=== PATIENT | female | born 1940 | race Hispanic/Latino ===

== ENCOUNTER 2023-06-27 15:10 | Inpatient (IN) | payer OTHER ==
[2023-06-27] VITALS (7 sets, daily range): BP systolic 115–133; BP diastolic 43–83; PULSE 71–87; RESP 11–16; O2SAT 100
[~2023-06-27] VITALS: Ht 170.2 cm; Wt 94.0 kg
[2023-06-27 16:23] LABS: BASOPHILS # (AUTO) 0.11 K/uL (0.00-0.20); BASOPHILS % (AUTO) 0.2 % (0.0-5.0); EOSINOPHILS # (AUTO) 0.03 K/uL (0.00-0.70); EOSINOPHILS % (AUTO) 0.1 % (0.0-8.0); HEMATOCRIT 26.1 % (36-48); IMMATURE GRANULOCYTE ABSOLUTE 1.08 K/uL (0-1); LYMPHOCYTES # (AUTO) 0.8 K/uL (1.0-4.8); LYMPHOCYTES % (AUTO) 1.9 % (21.0-51.0); MEAN CORPUSCULAR HEMOGLOBIN 21.2 pg (27.0-33.0); MEAN CORPUSCULAR VOLUME 68.3 fL (79-99); MONOCYTES # (AUTO) 1.1 K/uL (0.1-1.0); MONOCYTES % (AUTO) 2.4 % (3.0-13.0); PLATELET COUNT (AUTO) 417 K/uL (130-400); RED BLOOD CELL COUNT(AUTO) 3.82 MIL/uL (4.00-5.50); RED CELL DISTRIBUTION WIDTH 17.4 % (11.0-15.5)
[2023-06-27 16:26] LABS: ADD UA MICROSCOPIC YES; APPEARANCE,URINE TURBID (CLEAR); BILIRUBIN,URINE NEGATIVE (NEGATIVE); COLOR,URINE ORANGE (YELLOW); GLUCOSE, URINE (UA) NEGATIVE (NEGATIVE); KETONES,URINE NEGATIVE (NEGATIVE); LEUKOCYTE ESTERASE ,URINE 500 Leu/uL (NEGATIVE); NITRATE,URINE NEGATIVE (NEGATIVE); OCCULT BLOOD,URINE MODERATE (NEGATIVE); PH,URINE 7.5 (5.0-8.0); PROTEIN,URINE 200 mg/dL (NEGATIVE); UROBILINOGEN,URINE 0.2 mg/dL (0.2-1.0)
[2023-06-27 16:27] LABS: BACTERIA,URINE MOD /HPF (None Seen); MUCUS,URINE MANY LPF (None Seen); OTHER CASTS, URINE 63 /LPF (None Seen); RBC,URINE 26-50 /HPF (0-1); SQUAMOUS EPITHELIAL CELL,UR MOD /HPF (0-2); UNCLASSIFIED CRYSTAL 6 /HPF (None Seen); WBC CLUMP MANY /HPF (0-1); WBC,URINE 51-100 /HPF (0-1); YEAST,URINE BUDDING FEW /HPF (None Seen)
[2023-06-27 16:30] LABS: WHITE BLOOD COUNT (AUTO) 44.1 K/uL (4.8-10.8)
[2023-06-27 16:35] LABS: INR 1.06 (0.85-1.15); PROTHROMBIN TIME 12.2 SEC (9.6-11.6)
[2023-06-27 16:36] LABS: PARTIAL THROMBOPLASTIN TIME 30.7 SEC (26.3-35.5)
[2023-06-27] MEDS ORDERED: ZOSYN 3.375GM+NS 50ML 50 ML IVPB ONE (16:36)
[2023-06-27 16:41] LABS: ALBUMIN 1.5 g/dL (3.5-5.0); BILIRUBIN,TOTAL 0.4 mg/dL (0.2-1.0); POTASSIUM 5.3 mmol/L (3.5-5.1); TOTAL PROTEIN, SERUM 6.5 g/dL (6.0-8.3)
[2023-06-27] MEDS ORDERED: VANCOMYCIN KIT 1 GM/250 ML IV.KIT IV ONE (17:00)
[2023-06-27] MEDS ORDERED: 0.9%NACL 1000ML 1,000 ML IV SCH (17:00)
[2023-06-27] MEDS ORDERED: ZOSYN 3.375GM +NS 50ML IVPB ONE (17:00)
[2023-06-27 17:47] LABS: BAND NEUTROPHILS % (MANUAL) 8 % (0-2); LYMPHOCYTES % (MANUAL) 1 % (22-44); MAN.DIFF COMMENT-IMPRESSION MANUAL DIFFERENTIAL; MONOCYTES % (MANUAL) 1 % (2-9); SEGMENTED NEUTROPHILS % 90 % (40-70); TOTAL CELLS COUNTED 100
[2023-06-27 17:48] LABS: PLATELET MORPHOLOGY COMMENT PLT CLUMPS PRESENT
[2023-06-27] MEDS ORDERED: HYDROCODONE/ACETAMINOPHEN 5/325 MG TAB PO PRN (18:30)
[2023-06-27] MEDS ORDERED: DEXTROSE 5 %-0.45 % NACL 500 ML IV SCH (18:30)
[2023-06-27] MEDS ORDERED: NITROGLYCERIN 0.4 MG SL TAB SL PRN (18:30)
[2023-06-27] MEDS ORDERED: KCL 20 MEQ ERTAB PO PRN (18:30)
[2023-06-27] MEDS ORDERED: MAG/ALUM/SIMETH 30 ML UDCUP PO PRN (18:30)
[2023-06-27] MEDS ORDERED: GUAIFENESIN-DM 200/20 MG 10 ML PO PRN (18:30)
[2023-06-27] MEDS ORDERED: DiphenhydrAMINE HCL 50 MG/ML VIAL IV PRN (18:30)
[2023-06-27] MEDS ORDERED: POTASSIUM CHLORIDE 20MEQ/100ML 100 ML IV PRN (18:30)
[2023-06-27] MEDS ORDERED: ACETAMINOPHEN 325 MG TAB PO PRN (18:30)
[2023-06-27] MEDS ORDERED: DIPHENHYDRAMINE HCL 25 MG CAPSULE PO PRN (18:30)
[2023-06-27] MEDS ORDERED: POTASSIUM CHLORIDE 10% ELIXIR 20 MEQ/15 ML UDCUP PO PRN (18:30)
[2023-06-27] MEDS ORDERED: LACTULOSE 20 GM/30 ML UDCUP PO PRN (18:30)
[2023-06-27] MEDS ORDERED: VANCOMYCIN PROTOCOL PER PHARMACY IV PRN (18:30)
[2023-06-27] MEDS ORDERED: CEFEPIME HCL 2 GM VIAL IVPB SCH (18:30)
[2023-06-27 18:37] LABS: % IRON SATURATION 4.5 % (22-44)
[2023-06-27 18:45] LABS: THYROID STIMULATING HORMONE 5.33 uIU/mL (0.36-3.74)
[2023-06-27] MEDS: CEFEPIME HCL 1 GM VIAL IVPB SCH (19:30)
[2023-06-27] MEDS: FAMOTIDINE 20MG TAB PO SCH (20:13)
[2023-06-27] MEDS ORDERED: NOREPINEPHRIN 4MG/NS 250ML 250 ML IV ONE (20:21)
[2023-06-27] MEDS ORDERED: 0.9%NACL 1000ML 1,848 ML IV ONE (20:30)
[2023-06-27] MEDS: NOREPINEPHRIN 4MG/NS 250ML 250 ML IV SCH (20:37)
[2023-06-27] MEDS ORDERED: FAMOTIDINE 20MG VIAL IV PRN (21:00)
[2023-06-27] MEDS: HEPARIN 5,000 UNIT VIAL SQ SCH (21:11)
[2023-06-28] VITALS (53 sets, daily range): BP systolic 78–142; BP diastolic 38–80; PULSE 67–101; RESP 10–25; O2SAT 98–99
[2023-06-28] MEDS: NOREPINEPHRIN 4MG/NS 250ML 250 ML IV SCH ×2 (02:48→17:25)
[2023-06-28 05:09] LABS: BASOPHILS # (AUTO) 0.19 K/uL (0.00-0.20); BASOPHILS % (AUTO) 0.3 % (0.0-5.0); EOSINOPHILS # (AUTO) 0.17 K/uL (0.00-0.70); EOSINOPHILS % (AUTO) 0.3 % (0.0-8.0); HEMATOCRIT 27.2 % (36-48); IMMATURE GRANULOCYTE ABSOLUTE 1.18 K/uL (0-1); LYMPHOCYTES # (AUTO) 1.2 K/uL (1.0-4.8); LYMPHOCYTES % (AUTO) 2.1 % (21.0-51.0); MEAN CORPUSCULAR HEMOGLOBIN 20.9 pg (27.0-33.0); MEAN CORPUSCULAR HGB CONC 29.8 g/dL (32.0-36.0); MEAN CORPUSCULAR VOLUME 70.3 fL (79-99); MONOCYTES # (AUTO) 1.4 K/uL (0.1-1.0); MONOCYTES % (AUTO) 2.6 % (3.0-13.0); NEUTROPHILS % (AUTO) 92.6 % (40.0-77.0); PLATELET COUNT (AUTO) 407 K/uL (130-400); RED BLOOD CELL COUNT(AUTO) 3.87 MIL/uL (4.00-5.50); RED CELL DISTRIBUTION WIDTH 17.3 % (11.0-15.5)
[2023-06-28 05:10] LABS: WHITE BLOOD COUNT (AUTO) 56.1 K/uL (4.8-10.8)
[2023-06-28 05:21] LABS: INR 1.03 (0.85-1.15); PROTHROMBIN TIME 11.9 SEC (9.6-11.6)
[2023-06-28 05:22] LABS: PARTIAL THROMBOPLASTIN TIME 32.4 SEC (26.3-35.5)
[2023-06-28 05:28] LABS: ALBUMIN 1.3 g/dL (3.5-5.0); BILIRUBIN,TOTAL 0.2 mg/dL (0.2-1.0); CREATININE 2.4 mg/dL (0.5-1.5); MAGNESIUM 2.4 mg/dL (1.80-2.40); PHOSPHORUS 4.9 mg/dL (2.5-4.9); POTASSIUM 4.2 mmol/L (3.5-5.1)
[2023-06-28] MEDS: CEFEPIME HCL 1 GM VIAL IVPB SCH ×2 (05:44→18:25)
[2023-06-28] MEDS ORDERED: VANCOMYCIN PROTOCOL PER PHARMACY IV SCH (07:00)
[2023-06-28] MEDS ORDERED: ZOSYN 3.375GM +NS 50ML IVPB SCH (07:00)
[2023-06-28 08:24] LABS: ABG BASE EXCESS -10.6 mmol/L (-2.0-3.0); ABG HCO3 14.1 mmol/L (21.0-28.0); ABG OXYGEN SATURATION 97.8 % (95.0-99.0); ABG PCO2 27 mmHg (32-45); CARBON MONOXIDE 2.2; DEVICE COMMENT LR 2LNC; HHb 2.1
[2023-06-28] MEDS: HEPARIN 5,000 UNIT VIAL SQ SCH ×3 (08:53→21:42)
[2023-06-28] MEDS: IRON SUCROSE COMPLEX 300 MG in 0.9% NACL 250ML 250 ML IV SCH (08:53)
[2023-06-28] MEDS ORDERED: 0.9%NACL 50ML IV SCH (09:00)
[2023-06-28] MEDS: SODIUM BICARB 8.4% 50ML SYRING 150 MEQ in DEXTROSE 5%-WATER 1,000 ML IVP SCH ×2 (09:11→19:48)
[2023-06-28 12:12] LABS: CREATININE 2.3 mg/dL (0.5-1.5); POTASSIUM 4.9 mmol/L (3.5-5.1)
[2023-06-28] MEDS ORDERED: DEXAMETHASONE SOD PHOSPHATE 4 MG/ML 1ML VIAL IV ONE (14:30)
[2023-06-28 18:26] LABS: CREATININE 2.2 mg/dL (0.5-1.5); POTASSIUM 4.1 mmol/L (3.5-5.1)
[2023-06-28] MEDS: SODIUM HYPOCHLORITE 0.25% [HALF STRENGTH] 473 ML TOPICAL SOLN TP SCH (20:35)
[2023-06-28] MEDS: FAMOTIDINE 20MG TAB PO SCH (21:40)
[2023-06-28] MEDS: HYDROMORPHONE 1 MG INJ IV PRN (21:41)
[2023-06-28] MEDS ORDERED: NOREPINEPHRINE BITARTRATE 32 MG in 0.9% NACL 250ML 250 ML IV PRN (23:00)
[2023-06-29] VITALS (141 sets, daily range): BP systolic 105–165; BP diastolic 38–103; PULSE 67–107; RESP 6–154; O2SAT 97–98
[2023-06-29 04:05] LABS: BASOPHILS # (AUTO) 0.15 K/uL (0.00-0.20); BASOPHILS % (AUTO) 0.3 % (0.0-5.0); EOSINOPHILS # (AUTO) 0.17 K/uL (0.00-0.70); EOSINOPHILS % (AUTO) 0.3 % (0.0-8.0); HEMATOCRIT 27.5 % (36-48); IMMATURE GRANULOCYTE ABSOLUTE 0.85 K/uL (0-1); LYMPHOCYTES # (AUTO) 0.6 K/uL (1.0-4.8); LYMPHOCYTES % (AUTO) 1.3 % (21.0-51.0); MEAN CORPUSCULAR HEMOGLOBIN 20.6 pg (27.0-33.0); MEAN CORPUSCULAR HGB CONC 29.8 g/dL (32.0-36.0); MEAN CORPUSCULAR VOLUME 69.1 fL (79-99); MONOCYTES # (AUTO) 0.2 K/uL (0.1-1.0); MONOCYTES % (AUTO) 0.5 % (3.0-13.0); NEUTROPHILS # (AUTO) 46.7 K/uL (1.8-7.7); NEUTROPHILS % (AUTO) 95.9 % (40.0-77.0); NUCLEATED RED BLOOD CELLS 0.1 % (0.0-0.19); PLATELET COUNT (AUTO) 398 K/uL (130-400); RED BLOOD CELL COUNT(AUTO) 3.98 MIL/uL (4.00-5.50); RED CELL DISTRIBUTION WIDTH 17.4 % (11.0-15.5)
[2023-06-29 04:22] LABS: WHITE BLOOD COUNT (AUTO) 48.7 K/uL (4.8-10.8)
[2023-06-29 04:25] LABS: ALBUMIN 1.2 g/dL (3.5-5.0); BILIRUBIN,TOTAL 0.2 mg/dL (0.2-1.0); CREATININE 1.9 mg/dL (0.5-1.5); POTASSIUM 3.8 mmol/L (3.5-5.1); TOTAL PROTEIN, SERUM 5.8 g/dL (6.0-8.3)
[2023-06-29 05:18] LABS: BAND NEUTROPHILS % (MANUAL) 6 % (0-2); LYMPHOCYTES % (MANUAL) 2 % (22-44); MAN.DIFF COMMENT-IMPRESSION MANUAL DIFFERENTIAL; SEGMENTED NEUTROPHILS % 92 % (40-70); TOTAL CELLS COUNTED 100
[2023-06-29 05:19] LABS: PLATELET MORPHOLOGY COMMENT ADEQUATE
[2023-06-29] MEDS: CEFEPIME HCL 1 GM VIAL IVPB SCH ×2 (06:38→16:56)
[2023-06-29] MEDS: IRON SUCROSE COMPLEX 300 MG in 0.9% NACL 250ML 250 ML IV SCH (08:31)
[2023-06-29] MEDS: HEPARIN 5,000 UNIT VIAL SQ SCH ×3 (08:36→20:24)
[2023-06-29] MEDS: SODIUM HYPOCHLORITE 0.25% [HALF STRENGTH] 473 ML TOPICAL SOLN TP SCH ×2 (08:43→22:00)
[2023-06-29] MEDS ORDERED: DEXAMETHASONE SOD PHOSPHATE 4 MG/ML 1ML VIAL IVP ONE (09:00)
[2023-06-29] MEDS: MIDODRINE HCL 5 MG TABLET PO SCH ×3 (09:24→20:22)
[2023-06-29] MEDS ORDERED: DEXTROSE 50%-WATER 50 ML DISP.SYRIN IV PRN (09:30)
[2023-06-29] MEDS ORDERED: GLUCAGON 1MG KIT 1 MG ML IM PRN (09:30)
[2023-06-29 09:37] LABS: HEMOGLOBIN A1C 6.3 % (4.0-6.0)
[2023-06-29] MEDS: HYDROCODONE/ACETAMINOPHEN 5/325 MG TAB PO PRN (11:09)
[2023-06-29] MEDS: INSULIN HUMULIN R 100 UNIT/ML 3ML SQ SCH ×3 (11:30→20:19)
[2023-06-29] MEDS: HYDROMORPHONE 1 MG INJ IV PRN ×2 (14:08→23:06)
[2023-06-29] MEDS ORDERED: VANCOMYCIN 1G/250ML KIT 250 ML IV SCH (17:00)
[2023-06-29] MEDS: FAMOTIDINE 20MG TAB PO SCH (20:22)
[2023-06-30] VITALS (131 sets, daily range): BP systolic 84–142; BP diastolic 36–87; PULSE 58–113; RESP 8–37; O2SAT 97–100
[2023-06-30 04:45] LABS: BASOPHILS # (AUTO) 0.16 K/uL (0.00-0.20); BASOPHILS % (AUTO) 0.3 % (0.0-5.0); EOSINOPHILS # (AUTO) 0.03 K/uL (0.00-0.70); EOSINOPHILS % (AUTO) 0.1 % (0.0-8.0); HEMATOCRIT 24.9 % (36-48); IMMATURE GRANULOCYTE ABSOLUTE 1.33 K/uL (0-1); LYMPHOCYTES # (AUTO) 1.3 K/uL (1.0-4.8); LYMPHOCYTES % (AUTO) 2.3 % (21.0-51.0); MEAN CORPUSCULAR HEMOGLOBIN 20.9 pg (27.0-33.0); MEAN CORPUSCULAR HGB CONC 29.3 g/dL (32.0-36.0); MEAN CORPUSCULAR VOLUME 71.1 fL (79-99); MONOCYTES # (AUTO) 1.3 K/uL (0.1-1.0); MONOCYTES % (AUTO) 2.4 % (3.0-13.0); NEUTROPHILS # (AUTO) 51.3 K/uL (1.8-7.7); NEUTROPHILS % (AUTO) 92.5 % (40.0-77.0); NUCLEATED RED BLOOD CELLS 0.2 % (0.0-0.19); PLATELET COUNT (AUTO) 323 K/uL (130-400)
[2023-06-30 04:51] LABS: WHITE BLOOD COUNT (AUTO) 55.4 K/uL (4.8-10.8)
[2023-06-30 05:22] LABS: ALBUMIN 1.2 g/dL (3.5-5.0); BILIRUBIN,TOTAL 0.2 mg/dL (0.2-1.0); CREATININE 1.9 mg/dL (0.5-1.5); POTASSIUM 4.3 mmol/L (3.5-5.1); TOTAL PROTEIN, SERUM 5.4 g/dL (6.0-8.3)
[2023-06-30] MEDS: CEFEPIME HCL 1 GM VIAL IVPB SCH (06:12)
[2023-06-30] MEDS: INSULIN HUMULIN R 100 UNIT/ML 3ML SQ SCH ×4 (06:22→20:44)
[2023-06-30] MEDS: IRON SUCROSE COMPLEX 300 MG in 0.9% NACL 250ML 250 ML IV SCH (08:06)
[2023-06-30] MEDS: HEPARIN 5,000 UNIT VIAL SQ SCH ×3 (08:06→20:42)
[2023-06-30] MEDS: MEROPENEM 1 GM in 0.9%NACL 100ML 100 ML IV SCH ×2 (08:07→20:57)
[2023-06-30] MEDS: SODIUM HYPOCHLORITE 0.25% [HALF STRENGTH] 473 ML TOPICAL SOLN TP SCH ×2 (08:07→22:53)
[2023-06-30] MEDS: MIDODRINE HCL 5 MG TABLET PO SCH ×3 (08:07→20:42)
[2023-06-30] MEDS: ONDANSETRON 4MG INJ IV PRN (08:16)
[2023-06-30] MEDS ORDERED: BISACODYL 10 MG SUPP.RECT RC ONE (12:00)
[2023-06-30] MEDS: HYDROMORPHONE 1 MG INJ IV PRN ×2 (12:13→22:33)
[2023-06-30] MEDS: METOCLOPRAMIDE 10 MG/2 ML VIAL IVP SCH (16:09)
[2023-06-30] MEDS: DOCUSATE SODIUM 100 MG CAP PO SCH (20:42)
[2023-06-30] MEDS: FAMOTIDINE 20MG TAB PO SCH (20:43)
[2023-06-30] MEDS ORDERED: COMPOUND IV MISC 1 EACH IVSOLN MISC PRN (21:00)
[2023-06-30] MEDS ORDERED: COMPOUND IV REFRIGERATED 1 EACH IVSOLN MISC PRN (21:00)
[2023-07-01] VITALS (85 sets, daily range): BP systolic 85–165; BP diastolic 38–109; PULSE 56–89; RESP 8–28; O2SAT 94–100
[2023-07-01 05:29] LABS: BASOPHILS # (AUTO) 0.14 K/uL (0.00-0.20); BASOPHILS % (AUTO) 0.3 % (0.0-5.0); EOSINOPHILS # (AUTO) 0.02 K/uL (0.00-0.70); HEMATOCRIT 25.7 % (36-48); IMMATURE GRANULOCYTE ABSOLUTE 1.54 K/uL (0-1); LYMPHOCYTES # (AUTO) 1.4 K/uL (1.0-4.8); LYMPHOCYTES % (AUTO) 2.5 % (21.0-51.0); MEAN CORPUSCULAR HGB CONC 29.2 g/dL (32.0-36.0); MONOCYTES # (AUTO) 1.3 K/uL (0.1-1.0); MONOCYTES % (AUTO) 2.4 % (3.0-13.0); NEUTROPHILS # (AUTO) 49.3 K/uL (1.8-7.7); NEUTROPHILS % (AUTO) 91.9 % (40.0-77.0); NUCLEATED RED BLOOD CELLS 0.2 % (0.0-0.19); PLATELET COUNT (AUTO) 237 K/uL (130-400); RED BLOOD CELL COUNT(AUTO) 3.57 MIL/uL (4.00-5.50); RED CELL DISTRIBUTION WIDTH 18.3 % (11.0-15.5)
[2023-07-01 05:32] LABS: WHITE BLOOD COUNT (AUTO) 53.6 K/uL (4.8-10.8)
[2023-07-01 05:43] LABS: ALBUMIN 1.4 g/dL (3.5-5.0); BILIRUBIN,TOTAL 0.3 mg/dL (0.2-1.0); CREATININE 2.1 mg/dL (0.5-1.5); MAGNESIUM 2.1 mg/dL (1.80-2.40); PHOSPHORUS 4.6 mg/dL (2.5-4.9); POTASSIUM 4.4 mmol/L (3.5-5.1); TOTAL PROTEIN, SERUM 5.6 g/dL (6.0-8.3)
[2023-07-01 06:02] LABS: BAND NEUTROPHILS % (MANUAL) 1 % (0-2); LYMPHOCYTES % (MANUAL) 2 % (22-44); MAN.DIFF COMMENT-IMPRESSION MANUAL DIFFERENTIAL; MONOCYTES % (MANUAL) 1 % (2-9); SEGMENTED NEUTROPHILS % 96 % (40-70); TOTAL CELLS COUNTED 100
[2023-07-01 06:03] LABS: PLATELET MORPHOLOGY COMMENT ADEQUATE
[2023-07-01] MEDS: METOCLOPRAMIDE 10 MG/2 ML VIAL IVP SCH ×3 (06:40→17:22)
[2023-07-01] MEDS: INSULIN HUMULIN R 100 UNIT/ML 3ML SQ SCH ×4 (06:48→21:00)
[2023-07-01] MEDS: DOCUSATE SODIUM 100 MG CAP PO SCH ×2 (08:28→20:54)
[2023-07-01] MEDS: SODIUM HYPOCHLORITE 0.25% [HALF STRENGTH] 473 ML TOPICAL SOLN TP SCH ×2 (08:28→21:02)
[2023-07-01] MEDS: LACTOBACILLUS RHAMNOSUS GG 1 EACH CAP.SPRINK PO SCH (08:28)
[2023-07-01] MEDS: MIDODRINE HCL 5 MG TABLET PO SCH ×3 (08:28→20:56)
[2023-07-01] MEDS: POLYETHYLENE GLYCOL 3350 17 GM POWD.PACK PO SCH (08:28)
[2023-07-01] MEDS: FLUCONAZOLE 400 MG/NS 200 ML 200 ML IV SCH (08:28)
[2023-07-01] MEDS: HEPARIN 5,000 UNIT VIAL SQ SCH ×3 (08:53→20:52)
[2023-07-01] MEDS: MEROPENEM 1 GM in 0.9%NACL 100ML 100 ML IV SCH ×2 (10:22→20:53)
[2023-07-01] MEDS ORDERED: VANCOMYCIN 2GM/500 ML BAG 500 ML IV ONE (16:30)
[2023-07-01] MEDS ORDERED: VANCOMYCIN PROTOCOL PER PHARMACY IV SCH (16:30)
[2023-07-01] MEDS: HYDROMORPHONE 1 MG INJ IV PRN (17:23)
[2023-07-01] MEDS ORDERED: DEXAMETHASONE SOD PHOSPHATE 4 MG/ML 1ML VIAL IV SCH (20:00)
[2023-07-01] MEDS: ONDANSETRON 4MG INJ IV PRN (20:51)
[2023-07-01] MEDS: FAMOTIDINE 20MG TAB PO SCH (20:54)
[2023-07-02] VITALS (122 sets, daily range): BP systolic 89–153; BP diastolic 39–89; PULSE 70–116; RESP 9–29; O2SAT 94–96
[2023-07-02] MEDS: HYDROMORPHONE 1 MG INJ IV PRN (03:43)
[2023-07-02 04:45] LABS: BASOPHILS # (AUTO) 0.08 K/uL (0.00-0.20); BASOPHILS % (AUTO) 0.2 % (0.0-5.0); EOSINOPHILS # (AUTO) 0.12 K/uL (0.00-0.70); EOSINOPHILS % (AUTO) 0.3 % (0.0-8.0); HEMATOCRIT 24.2 % (36-48); IMMATURE GRANULOCYTE ABSOLUTE 1.19 K/uL (0-1); LYMPHOCYTES # (AUTO) 1.2 K/uL (1.0-4.8); LYMPHOCYTES % (AUTO) 3.4 % (21.0-51.0); MEAN CORPUSCULAR HEMOGLOBIN 21.1 pg (27.0-33.0); MEAN CORPUSCULAR HGB CONC 29.8 g/dL (32.0-36.0); MEAN CORPUSCULAR VOLUME 70.8 fL (79-99); MONOCYTES % (AUTO) 2.8 % (3.0-13.0); NEUTROPHILS # (AUTO) 31.5 K/uL (1.8-7.7); NEUTROPHILS % (AUTO) 89.9 % (40.0-77.0); NUCLEATED RED BLOOD CELLS 0.2 % (0.0-0.19); PLATELET COUNT (AUTO) 231 K/uL (130-400); RED BLOOD CELL COUNT(AUTO) 3.42 MIL/uL (4.00-5.50); RED CELL DISTRIBUTION WIDTH 18.7 % (11.0-15.5)
[2023-07-02 04:58] LABS: ALBUMIN 1.3 g/dL (3.5-5.0); BILIRUBIN,TOTAL 0.3 mg/dL (0.2-1.0); CREATININE 1.9 mg/dL (0.5-1.5); MAGNESIUM 2.1 mg/dL (1.80-2.40); PHOSPHORUS 4.2 mg/dL (2.5-4.9); POTASSIUM 3.8 mmol/L (3.5-5.1); TOTAL PROTEIN, SERUM 5.3 g/dL (6.0-8.3)
[2023-07-02 05:07] LABS: WHITE BLOOD COUNT (AUTO) 35.1 K/uL (4.8-10.8)
[2023-07-02] MEDS: INSULIN HUMULIN R 100 UNIT/ML 3ML SQ SCH ×4 (06:58→21:00)
[2023-07-02] MEDS: METOCLOPRAMIDE 10 MG/2 ML VIAL IVP SCH ×3 (08:48→16:58)
[2023-07-02] MEDS: FLUCONAZOLE 400 MG/NS 200 ML 200 ML IV SCH (08:48)
[2023-07-02] MEDS: POLYETHYLENE GLYCOL 3350 17 GM POWD.PACK PO SCH (08:48)
[2023-07-02] MEDS: MIDODRINE HCL 5 MG TABLET PO SCH ×4 (08:48→21:20)
[2023-07-02] MEDS: LACTOBACILLUS RHAMNOSUS GG 1 EACH CAP.SPRINK PO SCH (08:48)
[2023-07-02] MEDS: DOCUSATE SODIUM 100 MG CAP PO SCH ×2 (08:48→21:27)
[2023-07-02] MEDS: SODIUM HYPOCHLORITE 0.25% [HALF STRENGTH] 473 ML TOPICAL SOLN TP SCH (08:49)
[2023-07-02] MEDS: MEROPENEM 1 GM in 0.9%NACL 100ML 100 ML IV SCH ×2 (08:52→21:20)
[2023-07-02] MEDS: HEPARIN 5,000 UNIT VIAL SQ SCH ×3 (08:57→21:23)
[2023-07-02] MEDS: DEXAMETHASONE SOD PHOSPHATE 4 MG/ML 1ML VIAL IV SCH ×2 (14:41→21:21)
[2023-07-02] MEDS: HYDROCODONE/ACETAMINOPHEN 5/325 MG TAB PO PRN (16:58)
[2023-07-02] MEDS: FAMOTIDINE 20MG TAB PO SCH (21:20)
[2023-07-03] VITALS (45 sets, daily range): BP systolic 108–139; BP diastolic 44–84; PULSE 60–83; RESP 8–18; O2SAT 95–97
[2023-07-03] MEDS: SODIUM HYPOCHLORITE 0.25% [HALF STRENGTH] 473 ML TOPICAL SOLN TP SCH ×3 (00:46→21:09)
[2023-07-03 04:47] LABS: ALBUMIN 1.3 g/dL (3.5-5.0); BILIRUBIN,TOTAL 0.2 mg/dL (0.2-1.0); CREATININE 1.8 mg/dL (0.5-1.5); MAGNESIUM 2.2 mg/dL (1.80-2.40); PHOSPHORUS 3.6 mg/dL (2.5-4.9); POTASSIUM 4.1 mmol/L (3.5-5.1); TOTAL PROTEIN, SERUM 5.2 g/dL (6.0-8.3)
[2023-07-03 05:31] LABS: BASOPHILS # (AUTO) 0.05 K/uL (0.00-0.20); BASOPHILS % (AUTO) 0.2 % (0.0-5.0); EOSINOPHILS # (AUTO) 0.04 K/uL (0.00-0.70); EOSINOPHILS % (AUTO) 0.1 % (0.0-8.0); IMMATURE GRANULOCYTE ABSOLUTE 0.66 K/uL (0-1); LYMPHOCYTES # (AUTO) 0.4 K/uL (1.0-4.8); LYMPHOCYTES % (AUTO) 1.4 % (21.0-51.0); MEAN CORPUSCULAR HEMOGLOBIN 20.7 pg (27.0-33.0); MEAN CORPUSCULAR HGB CONC 28.1 g/dL (32.0-36.0); MEAN CORPUSCULAR VOLUME 73.7 fL (79-99); MONOCYTES # (AUTO) 0.2 K/uL (0.1-1.0); MONOCYTES % (AUTO) 0.5 % (3.0-13.0); NEUTROPHILS # (AUTO) 28.8 K/uL (1.8-7.7); NEUTROPHILS % (AUTO) 95.6 % (40.0-77.0); NUCLEATED RED BLOOD CELLS 0.1 % (0.0-0.19); PLATELET COUNT (AUTO) 182 K/uL (130-400); RED BLOOD CELL COUNT(AUTO) 3.53 MIL/uL (4.00-5.50); RED CELL DISTRIBUTION WIDTH 19.6 % (11.0-15.5)
[2023-07-03 05:44] LABS: WHITE BLOOD COUNT (AUTO) 30.2 K/uL (4.8-10.8)
[2023-07-03 06:34] LABS: BAND NEUTROPHILS % (MANUAL) 1 % (0-2); LYMPHOCYTES % (MANUAL) 2 % (22-44); MONOCYTES % (MANUAL) 2 % (2-9); SEGMENTED NEUTROPHILS % 95 % (40-70); TOTAL CELLS COUNTED 100
[2023-07-03 06:35] LABS: MAN.DIFF COMMENT-IMPRESSION MANUAL DIFFERENTIAL; PLATELET MORPHOLOGY COMMENT ADEQUATE; WBC MORPHOLOGY HYPERSEGMENT NEUT 2+
[2023-07-03] MEDS: INSULIN HUMULIN R 100 UNIT/ML 3ML SQ SCH ×4 (06:54→21:00)
[2023-07-03] MEDS: MIDODRINE HCL 5 MG TABLET PO SCH ×6 (07:55→21:00)
[2023-07-03] MEDS: METOCLOPRAMIDE 10 MG/2 ML VIAL IVP SCH ×3 (10:20→19:32)
[2023-07-03] MEDS: HEPARIN 5,000 UNIT VIAL SQ SCH ×3 (10:21→22:14)
[2023-07-03] MEDS: LACTOBACILLUS RHAMNOSUS GG 1 EACH CAP.SPRINK PO SCH (10:22)
[2023-07-03] MEDS: DOCUSATE SODIUM 100 MG CAP PO SCH ×2 (10:23→21:06)
[2023-07-03] MEDS: POLYETHYLENE GLYCOL 3350 17 GM POWD.PACK PO SCH (10:23)
[2023-07-03] MEDS: FLUCONAZOLE 400 MG/NS 200 ML 200 ML IV SCH (10:23)
[2023-07-03] MEDS: MEROPENEM 1 GM in 0.9%NACL 100ML 100 ML IV SCH ×2 (10:23→21:05)
[2023-07-03] MEDS ORDERED: VANCOMYCIN 1G/250ML KIT 250 ML IV SCH (16:30)
[2023-07-03] MEDS: DEXAMETHASONE SOD PHOSPHATE 4 MG/ML 1ML VIAL IV SCH (20:00)
[2023-07-03] MEDS: FAMOTIDINE 20MG TAB PO SCH (21:06)
[2023-07-03] MEDS: ACETAMINOPHEN 325 MG TAB PO PRN (21:28)
[2023-07-04] MEDS: INSULIN HUMULIN R 100 UNIT/ML 3ML SQ SCH ×4 (07:30→21:00)
[2023-07-04] MEDS: MEROPENEM 1 GM in 0.9%NACL 100ML 100 ML IV SCH ×2 (08:00→20:47)
[2023-07-04] MEDS: FLUCONAZOLE 400 MG/NS 200 ML 200 ML IV SCH (08:40)
[2023-07-04] MEDS: LACTOBACILLUS RHAMNOSUS GG 1 EACH CAP.SPRINK PO SCH (08:40)
[2023-07-04] MEDS: DOCUSATE SODIUM 100 MG CAP PO SCH ×2 (08:40→20:42)
[2023-07-04] MEDS: MIDODRINE HCL 5 MG TABLET PO SCH ×6 (08:40→21:00)
[2023-07-04] MEDS: POLYETHYLENE GLYCOL 3350 17 GM POWD.PACK PO SCH (08:40)
[2023-07-04] MEDS: SODIUM HYPOCHLORITE 0.25% [HALF STRENGTH] 473 ML TOPICAL SOLN TP SCH (09:20)
[2023-07-04 09:30] VITALS: O2SAT 100
[2023-07-04] MEDS: HEPARIN 5,000 UNIT VIAL SQ SCH ×2 (14:43→21:06)
[2023-07-04] MEDS: ONDANSETRON 4MG INJ IV PRN (14:47)
[2023-07-04 15:16] LABS: ALBUMIN 1.4 g/dL (3.5-5.0); BILIRUBIN,TOTAL 0.2 mg/dL (0.2-1.0); CREATININE 1.7 mg/dL (0.5-1.5); MAGNESIUM 2.1 mg/dL (1.80-2.40); POTASSIUM 4.3 mmol/L (3.5-5.1); TOTAL PROTEIN, SERUM 5.5 g/dL (6.0-8.3)
[2023-07-04 16:00] VITALS: BP 143/74; PULSE 80; RESP 18
[2023-07-04 16:00] LABS: HEMATOCRIT 27.5 % (36-48); MEAN CORPUSCULAR HEMOGLOBIN 21.2 pg (27.0-33.0); MEAN CORPUSCULAR HGB CONC 27.6 g/dL (32.0-36.0); MEAN CORPUSCULAR VOLUME 76.6 fL (79-99); NUCLEATED RED BLOOD CELLS 0.1 % (0.0-0.19); PLATELET COUNT (AUTO) 216 K/uL (130-400); RED BLOOD CELL COUNT(AUTO) 3.59 MIL/uL (4.00-5.50); RED CELL DISTRIBUTION WIDTH 20.5 % (11.0-15.5)
[2023-07-04] MEDS: METOCLOPRAMIDE 10 MG/2 ML VIAL IVP SCH (16:09)
[2023-07-04 16:19] LABS: WHITE BLOOD COUNT (AUTO) 31.1 K/uL (4.8-10.8)
[2023-07-04 16:57] LABS: BAND NEUTROPHILS % (MANUAL) 5 % (0-2); LYMPHOCYTES % (MANUAL) 2 % (22-44); MAN.DIFF COMMENT-IMPRESSION MANUAL DIFFERENTIAL; MONOCYTES % (MANUAL) 2 % (2-9); PLATELET MORPHOLOGY COMMENT ADEQUATE; SEGMENTED NEUTROPHILS % 91 % (40-70); TOTAL CELLS COUNTED 100; WBC MORPHOLOGY CONSISTENT W/DIFF
[2023-07-04 20:00] VITALS: BP 133/72; PULSE 84; RESP 18
[2023-07-04] MEDS: FAMOTIDINE 20MG TAB PO SCH (20:42)
[2023-07-04 20:45] VITALS: O2SAT 98
[2023-07-04] MEDS ORDERED: DEXAMETHASONE 10MG/ML 1ML VIAL 40 MG in 0.9%NACL 50ML 50 ML IV ONE (21:30)
[2023-07-04] MEDS: PHARMACY COMMUNICATION MISC SCH (21:54)
[2023-07-05] VITALS (8 sets, daily range): BP systolic 129–137; BP diastolic 61–69; PULSE 73–81; RESP 16–20; O2SAT 98
[2023-07-05] MEDS: SODIUM HYPOCHLORITE 0.25% [HALF STRENGTH] 473 ML TOPICAL SOLN TP SCH ×3 (01:06→19:27)
[2023-07-05] MEDS: PHARMACY COMMUNICATION MISC SCH (02:22)
[2023-07-05 04:20] LABS: HEMATOCRIT 28.6 % (36-48); MEAN CORPUSCULAR HEMOGLOBIN 21.5 pg (27.0-33.0); MEAN CORPUSCULAR HGB CONC 28.7 g/dL (32.0-36.0); MEAN CORPUSCULAR VOLUME 74.9 fL (79-99); RED BLOOD CELL COUNT(AUTO) 3.82 MIL/uL (4.00-5.50); RED CELL DISTRIBUTION WIDTH 21.9 % (11.0-15.5)
[2023-07-05 04:26] LABS: WHITE BLOOD COUNT (AUTO) 45.3 K/uL (4.8-10.8)
[2023-07-05] MEDS: INSULIN HUMULIN R 100 UNIT/ML 3ML SQ SCH ×4 (06:51→20:02)
[2023-07-05] MEDS: METOCLOPRAMIDE 10 MG/2 ML VIAL IVP SCH ×3 (07:03→16:02)
[2023-07-05] MEDS: LACTOBACILLUS RHAMNOSUS GG 1 EACH CAP.SPRINK PO SCH (09:07)
[2023-07-05] MEDS: POLYETHYLENE GLYCOL 3350 17 GM POWD.PACK PO SCH (09:07)
[2023-07-05] MEDS: FLUCONAZOLE 400 MG/NS 200 ML 200 ML IV SCH (09:07)
[2023-07-05] MEDS: DOCUSATE SODIUM 100 MG CAP PO SCH ×2 (09:07→20:07)
[2023-07-05] MEDS: MEROPENEM 1 GM in 0.9%NACL 100ML 100 ML IV SCH ×2 (11:13→20:06)
[2023-07-05] MEDS: MIDODRINE HCL 5 MG TABLET PO SCH ×2 (15:52→21:03)
[2023-07-05] MEDS: HEPARIN 5,000 UNIT VIAL SQ SCH ×2 (15:59→21:01)
[2023-07-05] MEDS: VANCOMYCIN 750MG VIAL IVPB SCH (18:52)
[2023-07-05] MEDS ORDERED: PHARMACY COMMUNICATION MISC SCH (20:00)
[2023-07-05] MEDS ORDERED: DEXAMETHASONE SOD PHOSPHATE 10MG/ML 1ML VIAL IV SCH (20:00)
[2023-07-05] MEDS: DEXAMETHASONE SOD PHOSPHATE 10MG/ML 1ML VIAL IV SCH (20:06)
[2023-07-05] MEDS: FAMOTIDINE 20MG TAB PO SCH (20:07)
[2023-07-06] VITALS (7 sets, daily range): BP systolic 116–150; BP diastolic 53–74; PULSE 69–77; RESP 18–20; O2SAT 98
[2023-07-06] MEDS: INSULIN HUMULIN R 100 UNIT/ML 3ML SQ SCH ×4 (05:44→20:30)
[2023-07-06] MEDS: METOCLOPRAMIDE 10 MG/2 ML VIAL IVP SCH ×3 (06:08→16:42)
[2023-07-06] MEDS: HEPARIN 5,000 UNIT VIAL SQ SCH ×3 (06:09→20:50)
[2023-07-06] MEDS: MIDODRINE HCL 5 MG TABLET PO SCH ×3 (06:10→20:43)
[2023-07-06 08:23] LABS: BASOPHILS # (AUTO) 0.06 K/uL (0.00-0.20); BASOPHILS % (AUTO) 0.2 % (0.0-5.0); HEMATOCRIT 26.4 % (36-48); IMMATURE GRANULOCYTE ABSOLUTE 0.39 K/uL (0-1); LYMPHOCYTES # (AUTO) 0.6 K/uL (1.0-4.8); LYMPHOCYTES % (AUTO) 1.7 % (21.0-51.0); MEAN CORPUSCULAR HEMOGLOBIN 21.5 pg (27.0-33.0); MEAN CORPUSCULAR VOLUME 76.7 fL (79-99); MONOCYTES # (AUTO) 0.4 K/uL (0.1-1.0); MONOCYTES % (AUTO) 1.3 % (3.0-13.0); NEUTROPHILS # (AUTO) 31.4 K/uL (1.8-7.7); NEUTROPHILS % (AUTO) 95.6 % (40.0-77.0); PLATELET COUNT (AUTO) 188 K/uL (130-400); RED BLOOD CELL COUNT(AUTO) 3.44 MIL/uL (4.00-5.50); RED CELL DISTRIBUTION WIDTH 22.5 % (11.0-15.5)
[2023-07-06 08:29] LABS: CREATININE 1.5 mg/dL (0.5-1.5); POTASSIUM 5.8 mmol/L (3.5-5.1)
[2023-07-06 08:59] LABS: WHITE BLOOD COUNT (AUTO) 32.8 K/uL (4.8-10.8)
[2023-07-06] MEDS ORDERED: DEXAMETHASONE SOD PHOSPHATE 10MG/ML 1ML VIAL IV SCH (09:00)
[2023-07-06] MEDS: DEXAMETHASONE SOD PHOSPHATE 10MG/ML 1ML VIAL IV SCH (09:01)
[2023-07-06] MEDS: DOCUSATE SODIUM 100 MG CAP PO SCH ×2 (09:01→19:28)
[2023-07-06] MEDS: MEROPENEM 1 GM in 0.9%NACL 100ML 100 ML IV SCH ×2 (09:01→20:43)
[2023-07-06] MEDS: FLUCONAZOLE 400 MG/NS 200 ML 200 ML IV SCH (09:02)
[2023-07-06] MEDS: SODIUM HYPOCHLORITE 0.25% [HALF STRENGTH] 473 ML TOPICAL SOLN TP SCH ×2 (09:02→20:43)
[2023-07-06] MEDS: LACTOBACILLUS RHAMNOSUS GG 1 EACH CAP.SPRINK PO SCH (09:02)
[2023-07-06] MEDS: POLYETHYLENE GLYCOL 3350 17 GM POWD.PACK PO SCH (09:02)
[2023-07-06] MEDS ORDERED: KAYEXALATE 15GM/60ML PO ONE (13:00)
[2023-07-06] MEDS: FAMOTIDINE 20MG TAB PO SCH (20:43)
[2023-07-07] VITALS (8 sets, daily range): BP systolic 128–158; BP diastolic 56–72; PULSE 67–77; RESP 17–20; O2SAT 95–100
[2023-07-07 04:49] LABS: CREATININE 1.4 mg/dL (0.5-1.5)
[2023-07-07] MEDS: ACETAMINOPHEN 325 MG TAB PO PRN ×2 (05:43→18:30)
[2023-07-07] MEDS: HEPARIN 5,000 UNIT VIAL SQ SCH ×3 (05:44→21:43)
[2023-07-07] MEDS: MIDODRINE HCL 5 MG TABLET PO SCH ×4 (05:44→21:41)
[2023-07-07] MEDS: INSULIN HUMULIN R 100 UNIT/ML 3ML SQ SCH ×4 (05:49→19:48)
[2023-07-07] MEDS: METOCLOPRAMIDE 10 MG/2 ML VIAL IVP SCH ×3 (06:25→17:20)
[2023-07-07 08:42] LABS: BASOPHILS # (AUTO) 0.07 K/uL (0.00-0.20); BASOPHILS % (AUTO) 0.2 % (0.0-5.0); EOSINOPHILS # (AUTO) 0.03 K/uL (0.00-0.70); EOSINOPHILS % (AUTO) 0.1 % (0.0-8.0); HEMATOCRIT 27.8 % (36-48); LYMPHOCYTES # (AUTO) 0.5 K/uL (1.0-4.8); LYMPHOCYTES % (AUTO) 1.6 % (21.0-51.0); MEAN CORPUSCULAR HEMOGLOBIN 21.6 pg (27.0-33.0); MEAN CORPUSCULAR HGB CONC 27.7 g/dL (32.0-36.0); MEAN CORPUSCULAR VOLUME 77.9 fL (79-99); MONOCYTES # (AUTO) 0.8 K/uL (0.1-1.0); MONOCYTES % (AUTO) 2.3 % (3.0-13.0); NEUTROPHILS # (AUTO) 31.1 K/uL (1.8-7.7); NEUTROPHILS % (AUTO) 94.6 % (40.0-77.0); PLATELET COUNT (AUTO) 165 K/uL (130-400); RED BLOOD CELL COUNT(AUTO) 3.57 MIL/uL (4.00-5.50); RED CELL DISTRIBUTION WIDTH 23.5 % (11.0-15.5)
[2023-07-07 09:02] LABS: WHITE BLOOD COUNT (AUTO) 32.9 K/uL (4.8-10.8)
[2023-07-07] MEDS: FLUCONAZOLE 400 MG/NS 200 ML 200 ML IV SCH (09:22)
[2023-07-07] MEDS: DOCUSATE SODIUM 100 MG CAP PO SCH ×2 (09:23→21:41)
[2023-07-07] MEDS: POLYETHYLENE GLYCOL 3350 17 GM POWD.PACK PO SCH (09:23)
[2023-07-07] MEDS: LACTOBACILLUS RHAMNOSUS GG 1 EACH CAP.SPRINK PO SCH (09:23)
[2023-07-07] MEDS: DEXAMETHASONE SOD PHOSPHATE 10MG/ML 1ML VIAL IV SCH (09:23)
[2023-07-07] MEDS: MEROPENEM 1 GM in 0.9%NACL 100ML 100 ML IV SCH ×2 (09:24→20:54)
[2023-07-07] MEDS: SODIUM HYPOCHLORITE 0.25% [HALF STRENGTH] 473 ML TOPICAL SOLN TP SCH ×2 (09:44→21:45)
[2023-07-07] MEDS: VANCOMYCIN 750MG VIAL IVPB SCH (17:21)
[2023-07-07] MEDS: FAMOTIDINE 20MG TAB PO SCH (21:41)
[2023-07-08] VITALS (7 sets, daily range): BP systolic 129–162; BP diastolic 59–77; PULSE 62–76; RESP 16–18; O2SAT 98–100
[2023-07-08] MEDS: MIDODRINE HCL 5 MG TABLET PO SCH ×3 (05:24→21:12)
[2023-07-08] MEDS: HEPARIN 5,000 UNIT VIAL SQ SCH ×2 (05:24→13:51)
[2023-07-08] MEDS: METOCLOPRAMIDE 10 MG/2 ML VIAL IVP SCH ×3 (05:25→17:12)
[2023-07-08] MEDS: ACETAMINOPHEN 325 MG TAB PO PRN (05:25)
[2023-07-08] MEDS: INSULIN HUMULIN R 100 UNIT/ML 3ML SQ SCH ×4 (05:41→20:59)
[2023-07-08 08:57] LABS: ALBUMIN 1.4 g/dL (3.5-5.0); BILIRUBIN,TOTAL 0.2 mg/dL (0.2-1.0); CREATININE 1.3 mg/dL (0.5-1.5); POTASSIUM 4.5 mmol/L (3.5-5.1); TOTAL PROTEIN, SERUM 4.8 g/dL (6.0-8.3)
[2023-07-08] MEDS: DEXAMETHASONE SOD PHOSPHATE 10MG/ML 1ML VIAL IV SCH (09:19)
[2023-07-08] MEDS: FLUCONAZOLE 400 MG/NS 200 ML 200 ML IV SCH (09:19)
[2023-07-08] MEDS: LACTOBACILLUS RHAMNOSUS GG 1 EACH CAP.SPRINK PO SCH (09:20)
[2023-07-08] MEDS: SODIUM HYPOCHLORITE 0.25% [HALF STRENGTH] 473 ML TOPICAL SOLN TP SCH ×2 (09:20→21:16)
[2023-07-08] MEDS: POLYETHYLENE GLYCOL 3350 17 GM POWD.PACK PO SCH (09:20)
[2023-07-08] MEDS: DOCUSATE SODIUM 100 MG CAP PO SCH ×2 (09:20→21:11)
[2023-07-08] MEDS: IRON SUCROSE COMPLEX 300 MG in 0.9% NACL 250ML 250 ML IV SCH (09:32)
[2023-07-08] MEDS: MEROPENEM 1 GM in 0.9%NACL 100ML 100 ML IV SCH ×2 (09:56→21:11)
[2023-07-08 14:39] LABS: INR 1.02 (0.85-1.15); PROTHROMBIN TIME 11.8 SEC (9.6-11.6)
[2023-07-08 14:40] LABS: PARTIAL THROMBOPLASTIN TIME 37.2 SEC (26.3-35.5)
[2023-07-08] MEDS: RIVAROXABAN 15 MG TABLET PO SCH (21:11)
[2023-07-08] MEDS: FAMOTIDINE 20MG TAB PO SCH (21:11)
[2023-07-09] VITALS (8 sets, daily range): BP systolic 128–164; BP diastolic 56–70; PULSE 67–81; RESP 16–17; O2SAT 97–98
[2023-07-09 04:26] LABS: BASOPHILS # (AUTO) 0.04 K/uL (0.00-0.20); BASOPHILS % (AUTO) 0.1 % (0.0-5.0); EOSINOPHILS # (AUTO) 0.01 K/uL (0.00-0.70); HEMATOCRIT 28.8 % (36-48); IMMATURE GRANULOCYTE ABSOLUTE 0.46 K/uL (0-1); LYMPHOCYTES # (AUTO) 0.5 K/uL (1.0-4.8); LYMPHOCYTES % (AUTO) 1.4 % (21.0-51.0); MEAN CORPUSCULAR HEMOGLOBIN 22.5 pg (27.0-33.0); MEAN CORPUSCULAR HGB CONC 28.5 g/dL (32.0-36.0); MEAN CORPUSCULAR VOLUME 79.1 fL (79-99); MONOCYTES # (AUTO) 0.9 K/uL (0.1-1.0); MONOCYTES % (AUTO) 2.5 % (3.0-13.0); NEUTROPHILS # (AUTO) 32.8 K/uL (1.8-7.7); NEUTROPHILS % (AUTO) 94.7 % (40.0-77.0); NUCLEATED RED BLOOD CELLS 0.1 % (0.0-0.19); PLATELET COUNT (AUTO) 182 K/uL (130-400); RED BLOOD CELL COUNT(AUTO) 3.64 MIL/uL (4.00-5.50); RED CELL DISTRIBUTION WIDTH 26.5 % (11.0-15.5)
[2023-07-09 04:31] LABS: WHITE BLOOD COUNT (AUTO) 34.6 K/uL (4.8-10.8)
[2023-07-09 04:54] LABS: ALBUMIN 1.5 g/dL (3.5-5.0); BILIRUBIN,TOTAL 0.2 mg/dL (0.2-1.0); CREATININE 1.3 mg/dL (0.5-1.5); MAGNESIUM 1.8 mg/dL (1.80-2.40); POTASSIUM 4.9 mmol/L (3.5-5.1); TOTAL PROTEIN, SERUM 5.2 g/dL (6.0-8.3)
[2023-07-09] MEDS: MIDODRINE HCL 5 MG TABLET PO SCH ×3 (05:11→20:39)
[2023-07-09] MEDS: INSULIN HUMULIN R 100 UNIT/ML 3ML SQ SCH ×4 (05:56→20:34)
[2023-07-09] MEDS: MAGNESIUM 2GM PREMIX 50ML 50 ML IV PRN (05:56)
[2023-07-09] MEDS: METOCLOPRAMIDE 10 MG/2 ML VIAL IVP SCH ×3 (05:56→16:45)
[2023-07-09] MEDS: FLUCONAZOLE 400 MG/NS 200 ML 200 ML IV SCH (09:05)
[2023-07-09] MEDS: DOCUSATE SODIUM 100 MG CAP PO SCH ×2 (09:05→20:40)
[2023-07-09] MEDS: POLYETHYLENE GLYCOL 3350 17 GM POWD.PACK PO SCH (09:06)
[2023-07-09] MEDS: RIVAROXABAN 15 MG TABLET PO SCH ×2 (09:06→20:40)
[2023-07-09] MEDS: LACTOBACILLUS RHAMNOSUS GG 1 EACH CAP.SPRINK PO SCH (09:06)
[2023-07-09] MEDS: DEXAMETHASONE SOD PHOSPHATE 10MG/ML 1ML VIAL IV SCH (09:06)
[2023-07-09] MEDS: SODIUM HYPOCHLORITE 0.25% [HALF STRENGTH] 473 ML TOPICAL SOLN TP SCH ×2 (09:08→20:46)
[2023-07-09] MEDS: MEROPENEM 1 GM in 0.9%NACL 100ML 100 ML IV SCH ×2 (09:11→20:41)
[2023-07-09] MEDS: IRON SUCROSE COMPLEX 300 MG in 0.9% NACL 250ML 250 ML IV SCH (11:32)
[2023-07-09] MEDS: VANCOMYCIN 750MG VIAL IVPB SCH (18:00)
[2023-07-09] MEDS: ACETAMINOPHEN 325 MG TAB PO PRN (18:01)
[2023-07-09] MEDS: FAMOTIDINE 20MG TAB PO SCH (20:40)
[2023-07-10] VITALS (8 sets, daily range): BP systolic 133–175; BP diastolic 58–77; PULSE 74–96; RESP 16–20; O2SAT 98
[2023-07-10] MEDS: MIDODRINE HCL 5 MG TABLET PO SCH ×3 (05:04→20:39)
[2023-07-10 05:49] LABS: BASOPHILS # (AUTO) 0.03 K/uL (0.00-0.20); BASOPHILS % (AUTO) 0.1 % (0.0-5.0); EOSINOPHILS # (AUTO) 0.01 K/uL (0.00-0.70); HEMATOCRIT 27.7 % (36-48); IMMATURE GRANULOCYTE ABSOLUTE 0.42 K/uL (0-1); LYMPHOCYTES # (AUTO) 0.3 K/uL (1.0-4.8); MEAN CORPUSCULAR HEMOGLOBIN 22.9 pg (27.0-33.0); MEAN CORPUSCULAR HGB CONC 29.6 g/dL (32.0-36.0); MEAN CORPUSCULAR VOLUME 77.4 fL (79-99); MONOCYTES # (AUTO) 0.9 K/uL (0.1-1.0); MONOCYTES % (AUTO) 2.7 % (3.0-13.0); NEUTROPHILS # (AUTO) 32.1 K/uL (1.8-7.7); NUCLEATED RED BLOOD CELLS 0.1 % (0.0-0.19); PLATELET COUNT (AUTO) 177 K/uL (130-400); RED BLOOD CELL COUNT(AUTO) 3.58 MIL/uL (4.00-5.50); RED CELL DISTRIBUTION WIDTH 27.5 % (11.0-15.5)
[2023-07-10 05:53] LABS: WHITE BLOOD COUNT (AUTO) 33.8 K/uL (4.8-10.8)
[2023-07-10 05:58] LABS: ALBUMIN 1.4 g/dL (3.5-5.0); BILIRUBIN,TOTAL 0.3 mg/dL (0.2-1.0); CREATININE 1.1 mg/dL (0.5-1.5); POTASSIUM 4.6 mmol/L (3.5-5.1); TOTAL PROTEIN, SERUM 4.8 g/dL (6.0-8.3)
[2023-07-10] MEDS: INSULIN HUMULIN R 100 UNIT/ML 3ML SQ SCH ×4 (06:11→20:38)
[2023-07-10] MEDS: METOCLOPRAMIDE 10 MG/2 ML VIAL IVP SCH ×3 (06:12→16:37)
[2023-07-10 06:32] LABS: BAND NEUTROPHILS % (MANUAL) 1 % (0-2); MONOCYTES % (MANUAL) 4 % (2-9); SEGMENTED NEUTROPHILS % 95 % (40-70); TOTAL CELLS COUNTED 100
[2023-07-10 06:33] LABS: MAN.DIFF COMMENT-IMPRESSION MANUAL DIFFERENTIAL; PLATELET MORPHOLOGY COMMENT ADEQUATE
[2023-07-10] MEDS: RIVAROXABAN 15 MG TABLET PO SCH ×2 (07:14→20:28)
[2023-07-10] MEDS: FLUCONAZOLE 400 MG/NS 200 ML 200 ML IV SCH (08:16)
[2023-07-10] MEDS: MEROPENEM 1 GM in 0.9%NACL 100ML 100 ML IV SCH ×2 (08:16→20:29)
[2023-07-10] MEDS: DEXAMETHASONE SOD PHOSPHATE 10MG/ML 1ML VIAL IV SCH (08:17)
[2023-07-10] MEDS: LACTOBACILLUS RHAMNOSUS GG 1 EACH CAP.SPRINK PO SCH (08:17)
[2023-07-10] MEDS: SODIUM HYPOCHLORITE 0.25% [HALF STRENGTH] 473 ML TOPICAL SOLN TP SCH ×2 (08:17→20:41)
[2023-07-10] MEDS: DOCUSATE SODIUM 100 MG CAP PO SCH ×2 (08:17→20:28)
[2023-07-10] MEDS: POLYETHYLENE GLYCOL 3350 17 GM POWD.PACK PO SCH (08:17)
[2023-07-10] MEDS: IRON SUCROSE COMPLEX 300 MG in 0.9% NACL 250ML 250 ML IV SCH (09:41)
[2023-07-10] MEDS: FAMOTIDINE 20MG TAB PO SCH (20:28)
[2023-07-11] VITALS (7 sets, daily range): BP systolic 127–184; BP diastolic 58–79; PULSE 71–86; RESP 16–20; O2SAT 97–99
[2023-07-11 05:40] LABS: BASOPHILS # (AUTO) 0.04 K/uL (0.00-0.20); BASOPHILS % (AUTO) 0.1 % (0.0-5.0); HEMATOCRIT 28.3 % (36-48); IMMATURE GRANULOCYTE ABSOLUTE 0.37 K/uL (0-1); LYMPHOCYTES # (AUTO) 0.4 K/uL (1.0-4.8); MEAN CORPUSCULAR HEMOGLOBIN 22.7 pg (27.0-33.0); MEAN CORPUSCULAR HGB CONC 29.3 g/dL (32.0-36.0); MEAN CORPUSCULAR VOLUME 77.3 fL (79-99); MONOCYTES % (AUTO) 3.1 % (3.0-13.0); NEUTROPHILS % (AUTO) 94.7 % (40.0-77.0); PLATELET COUNT (AUTO) 185 K/uL (130-400); RED BLOOD CELL COUNT(AUTO) 3.66 MIL/uL (4.00-5.50)
[2023-07-11 05:43] LABS: WHITE BLOOD COUNT (AUTO) 33.8 K/uL (4.8-10.8)
[2023-07-11] MEDS: VANCOMYCIN 750MG VIAL IVPB SCH (06:00)
[2023-07-11] MEDS: MIDODRINE HCL 5 MG TABLET PO SCH ×3 (06:00→21:13)
[2023-07-11] MEDS: INSULIN HUMULIN R 100 UNIT/ML 3ML SQ SCH ×4 (07:30→21:00)
[2023-07-11] MEDS: ACETAMINOPHEN WITH CODEINE 1 TAB TAB PO PRN ×2 (09:58→18:01)
[2023-07-11] MEDS: POLYETHYLENE GLYCOL 3350 17 GM POWD.PACK PO SCH (09:58)
[2023-07-11] MEDS: FLUCONAZOLE 400 MG/NS 200 ML 200 ML IV SCH (09:59)
[2023-07-11] MEDS: LACTOBACILLUS RHAMNOSUS GG 1 EACH CAP.SPRINK PO SCH (09:59)
[2023-07-11] MEDS: DEXAMETHASONE SOD PHOSPHATE 10MG/ML 1ML VIAL IV SCH (09:59)
[2023-07-11] MEDS: MEROPENEM 1 GM in 0.9%NACL 100ML 100 ML IV SCH ×2 (09:59→21:10)
[2023-07-11] MEDS: DOCUSATE SODIUM 100 MG CAP PO SCH ×2 (09:59→21:11)
[2023-07-11] MEDS: METOCLOPRAMIDE 10 MG/2 ML VIAL IVP SCH ×3 (10:03→18:00)
[2023-07-11] MEDS: SODIUM HYPOCHLORITE 0.25% [HALF STRENGTH] 473 ML TOPICAL SOLN TP SCH ×2 (10:24→21:14)
[2023-07-11] MEDS: MAGNESIUM 2GM PREMIX 50ML 50 ML IV PRN (13:27)
[2023-07-11] MEDS: FAMOTIDINE 20MG TAB PO SCH (21:11)
[2023-07-12] VITALS (8 sets, daily range): BP systolic 138–172; BP diastolic 58–84; PULSE 62–76; RESP 16–17; O2SAT 97–99
[2023-07-12 04:11] LABS: BASOPHILS # (AUTO) 0.05 K/uL (0.00-0.20); BASOPHILS % (AUTO) 0.2 % (0.0-5.0); EOSINOPHILS # (AUTO) 0.01 K/uL (0.00-0.70); HEMATOCRIT 26.4 % (36-48); IMMATURE GRANULOCYTE ABSOLUTE 0.72 K/uL (0-1); LYMPHOCYTES # (AUTO) 0.3 K/uL (1.0-4.8); MEAN CORPUSCULAR HEMOGLOBIN 23.1 pg (27.0-33.0); MEAN CORPUSCULAR HGB CONC 29.5 g/dL (32.0-36.0); MEAN CORPUSCULAR VOLUME 78.3 fL (79-99); MONOCYTES # (AUTO) 0.8 K/uL (0.1-1.0); MONOCYTES % (AUTO) 2.5 % (3.0-13.0); NEUTROPHILS # (AUTO) 29.7 K/uL (1.8-7.7); NUCLEATED RED BLOOD CELLS 0.1 % (0.0-0.19); PLATELET COUNT (AUTO) 179 K/uL (130-400); RED BLOOD CELL COUNT(AUTO) 3.37 MIL/uL (4.00-5.50)
[2023-07-12 04:14] LABS: WHITE BLOOD COUNT (AUTO) 31.6 K/uL (4.8-10.8)
[2023-07-12] MEDS: MIDODRINE HCL 5 MG TABLET PO SCH ×3 (06:00→20:14)
[2023-07-12] MEDS: ACETAMINOPHEN WITH CODEINE 1 TAB TAB PO PRN ×3 (06:07→20:15)
[2023-07-12] MEDS: INSULIN HUMULIN R 100 UNIT/ML 3ML SQ SCH ×4 (06:27→20:01)
[2023-07-12] MEDS: METOCLOPRAMIDE 10 MG/2 ML VIAL IVP SCH ×3 (06:31→17:08)
[2023-07-12] MEDS: FLUCONAZOLE 400 MG/NS 200 ML 200 ML IV SCH (08:26)
[2023-07-12] MEDS: DEXAMETHASONE SOD PHOSPHATE 10MG/ML 1ML VIAL IV SCH (08:27)
[2023-07-12] MEDS: POLYETHYLENE GLYCOL 3350 17 GM POWD.PACK PO SCH (08:27)
[2023-07-12] MEDS: LACTOBACILLUS RHAMNOSUS GG 1 EACH CAP.SPRINK PO SCH (08:27)
[2023-07-12] MEDS: DOCUSATE SODIUM 100 MG CAP PO SCH ×2 (08:27→20:14)
[2023-07-12] MEDS: MEROPENEM 1 GM in 0.9%NACL 100ML 100 ML IV SCH ×2 (08:30→22:38)
[2023-07-12] MEDS: SODIUM HYPOCHLORITE 0.25% [HALF STRENGTH] 473 ML TOPICAL SOLN TP SCH ×2 (09:00→21:32)
[2023-07-12] MEDS ORDERED: Midodrine Hcl PO (12:35)
[2023-07-12] MEDS ORDERED: RIVA15TA PO (12:35)
[2023-07-12] MEDS: VANCOMYCIN 750MG VIAL IVPB SCH (17:18)
[2023-07-12] MEDS: 0.9% NACL 250ML 250 ML IV SCH (17:19)
[2023-07-12] MEDS: FAMOTIDINE 20MG TAB PO SCH (20:14)
[2023-07-12] MEDS: RIVAROXABAN 15 MG TABLET PO SCH (22:03)
[2023-07-13] VITALS (8 sets, daily range): BP systolic 146–176; BP diastolic 66–86; PULSE 59–68; RESP 16–18; O2SAT 96–98
[2023-07-13] MEDS: MIDODRINE HCL 5 MG TABLET PO SCH ×3 (05:12→21:46)
[2023-07-13] MEDS: METOCLOPRAMIDE 10 MG/2 ML VIAL IVP SCH ×3 (05:13→16:32)
[2023-07-13] MEDS: INSULIN HUMULIN R 100 UNIT/ML 3ML SQ SCH ×4 (05:23→21:00)
[2023-07-13 05:24] LABS: BASOPHILS # (AUTO) 0.03 K/uL (0.00-0.20); BASOPHILS % (AUTO) 0.1 % (0.0-5.0); EOSINOPHILS # (AUTO) 0.02 K/uL (0.00-0.70); EOSINOPHILS % (AUTO) 0.1 % (0.0-8.0); HEMATOCRIT 28.2 % (36-48); IMMATURE GRANULOCYTE ABSOLUTE 0.19 K/uL (0-1); LYMPHOCYTES # (AUTO) 0.3 K/uL (1.0-4.8); LYMPHOCYTES % (AUTO) 1.4 % (21.0-51.0); MEAN CORPUSCULAR HEMOGLOBIN 23.5 pg (27.0-33.0); MEAN CORPUSCULAR HGB CONC 29.1 g/dL (32.0-36.0); MEAN CORPUSCULAR VOLUME 80.8 fL (79-99); MONOCYTES # (AUTO) 0.7 K/uL (0.1-1.0); MONOCYTES % (AUTO) 2.8 % (3.0-13.0); NEUTROPHILS # (AUTO) 22.3 K/uL (1.8-7.7); NEUTROPHILS % (AUTO) 94.8 % (40.0-77.0); RED BLOOD CELL COUNT(AUTO) 3.49 MIL/uL (4.00-5.50); WHITE BLOOD COUNT (AUTO) 23.6 K/uL (4.8-10.8)
[2023-07-13 05:43] LABS: PLATELET COUNT (AUTO) 168 K/uL (130-400)
[2023-07-13] MEDS: MEROPENEM 1 GM in 0.9%NACL 100ML 100 ML IV SCH ×2 (09:05→21:30)
[2023-07-13] MEDS: FLUCONAZOLE 400 MG/NS 200 ML 200 ML IV SCH (09:05)
[2023-07-13] MEDS: DOCUSATE SODIUM 100 MG CAP PO SCH ×2 (09:06→21:01)
[2023-07-13] MEDS: LACTOBACILLUS RHAMNOSUS GG 1 EACH CAP.SPRINK PO SCH (09:06)
[2023-07-13] MEDS: DEXAMETHASONE SOD PHOSPHATE 10MG/ML 1ML VIAL IV SCH (09:07)
[2023-07-13] MEDS: POLYETHYLENE GLYCOL 3350 17 GM POWD.PACK PO SCH (09:07)
[2023-07-13] MEDS: ACETAMINOPHEN WITH CODEINE 1 TAB TAB PO PRN (09:18)
[2023-07-13] MEDS: SODIUM HYPOCHLORITE 0.25% [HALF STRENGTH] 473 ML TOPICAL SOLN TP SCH ×2 (11:19→21:09)
[2023-07-13] MEDS ORDERED: RIVAROXABAN 15 MG TABLET ONE (12:05)
[2023-07-13] MEDS: RIVAROXABAN 15 MG TABLET PO SCH ×2 (12:09→21:08)
[2023-07-13] MEDS: FAMOTIDINE 20MG TAB PO SCH (21:01)
[2023-07-14] VITALS (8 sets, daily range): BP systolic 130–172; BP diastolic 63–86; PULSE 63–70; RESP 16–19; O2SAT 98
[2023-07-14] MEDS: ACETAMINOPHEN WITH CODEINE 1 TAB TAB PO PRN ×4 (01:13→23:25)
[2023-07-14] MEDS: MIDODRINE HCL 5 MG TABLET PO SCH ×3 (05:06→22:00)
[2023-07-14] MEDS: VANCOMYCIN 750MG VIAL IVPB SCH (05:49)
[2023-07-14] MEDS: 0.9% NACL 250ML 250 ML IV SCH (05:50)
[2023-07-14] MEDS: INSULIN HUMULIN R 100 UNIT/ML 3ML SQ SCH ×4 (06:38→21:00)
[2023-07-14] MEDS: METOCLOPRAMIDE 10 MG/2 ML VIAL IVP SCH ×3 (06:43→17:55)
[2023-07-14] MEDS: POLYETHYLENE GLYCOL 3350 17 GM POWD.PACK PO SCH (09:19)
[2023-07-14] MEDS: LACTOBACILLUS RHAMNOSUS GG 1 EACH CAP.SPRINK PO SCH (09:19)
[2023-07-14] MEDS: FLUCONAZOLE 400 MG/NS 200 ML 200 ML IV SCH (09:19)
[2023-07-14] MEDS: DOCUSATE SODIUM 100 MG CAP PO SCH ×2 (09:19→21:00)
[2023-07-14] MEDS: DEXAMETHASONE SOD PHOSPHATE 10MG/ML 1ML VIAL IV SCH (09:19)
[2023-07-14] MEDS: RIVAROXABAN 15 MG TABLET PO SCH ×2 (09:20→21:00)
[2023-07-14] MEDS ORDERED: MORPHINE 2 MG SYG IVP ONE (15:30)
[2023-07-14] MEDS: SODIUM HYPOCHLORITE 0.25% [HALF STRENGTH] 473 ML TOPICAL SOLN TP SCH ×2 (16:03→21:05)
[2023-07-14] MEDS: FAMOTIDINE 20MG TAB PO SCH (21:00)
[2023-07-15 00:02] VITALS: BP 180/79; PULSE 66; RESP 18
[2023-07-15 04:34] VITALS: BP 152/89; PULSE 80; RESP 17
[2023-07-15] MEDS: MIDODRINE HCL 5 MG TABLET PO SCH ×2 (05:20→13:48)
[2023-07-15] MEDS: INSULIN HUMULIN R 100 UNIT/ML 3ML SQ SCH ×2 (06:16→11:15)
[2023-07-15] MEDS: METOCLOPRAMIDE 10 MG/2 ML VIAL IVP SCH ×2 (06:33→11:46)
[2023-07-15] MEDS: ACETAMINOPHEN WITH CODEINE 1 TAB TAB PO PRN ×2 (06:38→13:58)
[2023-07-15 08:00] VITALS: BP 150/69; PULSE 81; RESP 18
[2023-07-15 10:00] VITALS: O2SAT 98
[2023-07-15] MEDS: DEXAMETHASONE SOD PHOSPHATE 10MG/ML 1ML VIAL IV SCH (10:17)
[2023-07-15] MEDS: POLYETHYLENE GLYCOL 3350 17 GM POWD.PACK PO SCH (10:17)
[2023-07-15] MEDS: FLUCONAZOLE 400 MG/NS 200 ML 200 ML IV SCH (10:17)
[2023-07-15] MEDS: LACTOBACILLUS RHAMNOSUS GG 1 EACH CAP.SPRINK PO SCH (10:18)
[2023-07-15] MEDS: SODIUM HYPOCHLORITE 0.25% [HALF STRENGTH] 473 ML TOPICAL SOLN TP SCH (10:32)
[2023-07-15] MEDS: RIVAROXABAN 15 MG TABLET PO SCH (10:32)
[2023-07-15] MEDS: DOCUSATE SODIUM 100 MG CAP PO SCH (10:32)
[2023-07-15 12:00] VITALS: BP 153/76; PULSE 82; RESP 17
[2023-07-15 16:00] VITALS: BP 140/77; PULSE 91; RESP 17
== END 2023-07-15 16:55 | disposition hospice, home (50) | DRG 871 ==
LOC: EDH 15:10 → EDHIP 15:11 → EDBD 15:11 → 2CH 20:58 → 2BH 06-28 17:50 → 2CH 06-30 15:39 → 4CH 07-03 14:35
PROVIDERS: ADMIT Internal Medicine; ATTEND Internal Medicine
PROC: 02HV33Z Insertion of Infusion Device into Superior Vena Cava, Percutaneous Approach (ICD-10-PCS; principal; 2023-06-28)
PROC: 0HBAXZX Excision of Inguinal Skin, External Approach, Diagnostic (ICD-10-PCS; 2023-06-28)
DX: A41.9 Sepsis, unspecified organism (principal); L89.154 Pressure ulcer of sacral region, stage 4; R65.21 Severe sepsis with septic shock; R53.2 Functional quadriplegia; N17.9 Acute kidney failure, unspecified; L97.929 Non-pressure chronic ulcer of unspecified part of left lower leg with unspecified severity; E87.20 Acidosis, unspecified; E46 Unspecified protein-calorie malnutrition; I82.621 Acute embolism and thrombosis of deep veins of right upper extremity; L02.214 Cutaneous abscess of groin; N39.0 Urinary tract infection, site not specified; Z16.24 Resistance to multiple antibiotics; E87.5 Hyperkalemia; R19.09 Other intra-abdominal and pelvic swelling, mass and lump; D50.9 Iron deficiency anemia, unspecified; I10 Essential (primary) hypertension; B96.20 Unspecified Escherichia coli [E. coli] as the cause of diseases classified elsewhere; E16.2 Hypoglycemia, unspecified; E66.9 Obesity, unspecified; K59.00 Constipation, unspecified; R59.0 Localized enlarged lymph nodes; R91.8 Other nonspecific abnormal finding of lung field; B96.4 Proteus (mirabilis) (morganii) as the cause of diseases classified elsewhere; B96.5 Pseudomonas (aeruginosa) (mallei) (pseudomallei) as the cause of diseases classified elsewhere; L98.429 Non-pressure chronic ulcer of back with unspecified severity; R62.7 Adult failure to thrive; Z79.01 Long term (current) use of anticoagulants; Z74.01 Bed confinement status; Z80.0 Family history of malignant neoplasm of digestive organs; Z80.8 Family history of malignant neoplasm of other organs or systems; Z68.32 Body mass index [BMI] 32.0-32.9, adult
CPT/HCPCS: 36415; 36600; 38505; 70450; 71045; 71250; 73700; 74018; 74176; 76882; 76942; 80048; 80053; 80202; 81001; 82435; 82550; 82803; 82947; 82948; 83036; 83540; 83550; 83605; 83735; 83880; 84100; 84132; 84145; 84295; 84439; 84443; 84484; 85007; 85018; 85025; 85027; 85610; 85730; 86140; 87040; 87070; 87076; 87077; 87088; 87186; 92610; 93925; 93971; 96365; 96372; C1751; C1894; G0378; J0692; J1100; J1170; J1450; J1644; J1756; J2185; J2270; J2405; J2543; J2765; J3370; J3475; J3480; J3490; J7042; J7050; J7070